=== PATIENT | male | born 1980 | race Caucasian/White ===

== ENCOUNTER 2016-12-31 15:48 | Emergency (ER) | payer SELFPAY ==
[~2016-12-31] VITALS: Ht 177.8 cm; Wt 81.8 kg
[2016-12-31 15:53] VITALS: TEMP 98.6
[2016-12-31] MEDS ORDERED: TYLENOL 500MG500 MG PO (16:00)
[2016-12-31 16:18] LABS: BASO # 0.1 (0.0-0.2); BASO % 1.1 % (0.0-2.0); EOS # 0.4 (0.0-0.7); EOS % 4.1 % (0-4.0); GRAN # 4.8 (1.4-6.5); GRAN % 45.6 % (42.2-75.2); HEMATOCRIT 47.3 % (42.0-52.0); HEMOGLOBIN 16.9 g/dl (13.5-18.0); LYMPH # 3.9 (1.2-3.4); LYMPH % 36.9 % (20.0-51.0); MEAN CELL VOLUME 92 fl (80.0-100.0); MEAN CORPUSCULAR HEMOGLOBIN 33 pg (27.0-31.0); MEAN CORPUSCULAR HGB CONC 36 g/dl (33.0-37.0); MEAN PLATELET VOLUME 10.1 fl (7.4-10.4); MONO # 1.3 (0.1-0.6); PLATELET COUNT 342 K/mm3 (130-400); RED BLOOD COUNT 5.14 M/mm3 (4.20-5.60); REDCELL DISTRIBUTION WIDTH-CV 11.9 % (11.5-14.5); WHITE BLOOD COUNT 10.5 K/mm3 (4.8-10.8)
[2016-12-31 16:32] LABS: ADJUSTED CALCIUM 8.5 mg/dL (8.4-10.2); ALBUMIN 4.9 gm/dL (3.5-5.0); BILIRUBIN,TOTAL 0.5 mg/dL (0.0-1.0); CALCIUM 9.2 mg/dL (8.4-10.2); CREATININE, serum 1.18 mg/dL (0.66-1.25); POTASSIUM 4.2 mmol/L (3.4-5.0); TOTAL PROTEIN 8.5 gm/dL (6.4-8.2)
[2016-12-31 18:19] VITALS: BP 136/87; PULSE 106
== END 2016-12-31 18:21 | disposition home or self-care (01) ==
LOC: COL.ER 15:48
PROVIDERS: Emergency Medicine
DX: S31.811A Laceration without foreign body of right buttock, initial encounter (principal); F10.129 Alcohol abuse with intoxication, unspecified; F17.210 Nicotine dependence, cigarettes, uncomplicated; Z23 Encounter for immunization; Y90.8 Blood alcohol level of 240 mg/100 ml or more; W01.110A Fall on same level from slipping, tripping and stumbling with subsequent striking against sharp glass, initial encounter; Y92.009 Unspecified place in unspecified non-institutional (private) residence as the place of occurrence of the external cause
CPT/HCPCS: J2270; J2405; J7030

== ENCOUNTER → 2017-01-10 | Outpatient (CLI) | payer BC ==
[~2017-01-10] MED LIST: TYLENOL 500MG500 MG PO
[2017-01-10 16:57] LABS: BASO # 0.1 (0.0-0.2); EOS # 0.3 (0.0-0.7); EOS % 3.7 % (0-4.0); GRAN # 4.3 (1.4-6.5); GRAN % 60.6 % (42.2-75.2); HEMATOCRIT 42.5 % (42.0-52.0); HEMOGLOBIN 14.9 g/dl (13.5-18.0); LYMPH # 1.8 (1.2-3.4); LYMPH % 24.9 % (20.0-51.0); MEAN CELL VOLUME 94 fl (80.0-100.0); MEAN CORPUSCULAR HEMOGLOBIN 33 pg (27.0-31.0); MEAN CORPUSCULAR HGB CONC 35 g/dl (33.0-37.0); MONO # 0.7 (0.1-0.6); MONO % 9.2 % (1.7-9.3); PLATELET COUNT 300 K/mm3 (130-400); RED BLOOD COUNT 4.51 M/mm3 (4.20-5.60); REDCELL DISTRIBUTION WIDTH-CV 12.3 % (11.5-14.5); WHITE BLOOD COUNT 7.1 K/mm3 (4.8-10.8)
== END ==
LOC: COL.LAB 15:44
PROVIDERS: Nurse Practitioner Family
DX: L03.317 Cellulitis of buttock (principal)

== ENCOUNTER 2019-10-13 20:39 | Emergency (ER) | payer BC ==
[2019-10-13] MEDS ORDERED: CEPHALEXIN500 M1 PO ×2 (22:37)
[2019-10-16] MEDS ORDERED: CEPHALEXIN500 M1 PO (09:33)
== END 2019-10-13 21:06 | disposition left against medical advice (07) ==
LOC: COL.ER 20:39
DX: Z72.9 Problem related to lifestyle, unspecified (principal)

== ENCOUNTER 2019-10-13 21:15 | Emergency (ER) | payer BC ==
[~2019-10-13] VITALS: Ht 177.8 cm; Wt 90.9 kg
[2019-10-13 21:23] VITALS: BP 165/104; TEMP 98.8
[2019-10-13] MEDS ORDERED: CEPHALEXIN500 M1 PO ×2 (22:37)
[2019-10-13 23:14] VITALS: PULSE 102
[2019-10-16] MEDS ORDERED: CEPHALEXIN500 M1 PO (09:33)
== END 2019-10-13 23:14 | disposition home or self-care (01) ==
LOC: COL.ER 21:15
DX: S51.812A Laceration without foreign body of left forearm, initial encounter (principal); F32.9 Major depressive disorder, single episode, unspecified; F43.10 Post-traumatic stress disorder, unspecified; Z72.89 Other problems related to lifestyle; W26.8XXA Contact with other sharp object(s), not elsewhere classified, initial encounter; Y92.009 Unspecified place in unspecified non-institutional (private) residence as the place of occurrence of the external cause

== ENCOUNTER → 2019-10-20 | Outpatient (CLI) | payer BC ==
[~2019-10-20] MED LIST changes: +CEPHALEXIN500 M1 PO
[2019-10-20 11:57] VITALS: BP 159/90; PULSE 105; TEMP 98.9
== END ==
LOC: COL.ER 11:50
DX: Z48.02 Encounter for removal of sutures (principal)

== ENCOUNTER 2021-10-28 17:30 | Emergency (ER) | payer BC ==
[~2021-10-28] VITALS: Ht 177.8 cm; Wt 82.7 kg
[2021-10-28 18:08] VITALS: TEMP 98.2
[2021-10-28] MEDS ORDERED: MOBIC15 MG PO (18:11)
[2021-10-28 18:59] LABS: BASO % 0.8 % (0.0-2.0); EOS # 0.1 K/mm3 (0.0-0.7); EOS % 1.8 % (0.0-4.0); GRAN # 2.9 K/mm3 (1.4-6.5); GRAN % 57.6 % (42.2-75.2); HEMATOCRIT 43.2 % (42.0-52.0); HEMOGLOBIN 14.4 g/dl (13.5-18.0); LYMPH # 1.5 K/mm3 (1.2-3.4); LYMPH % 29.6 % (20.0-51.0); MEAN CELL VOLUME 95 fl (80.0-100.0); MEAN CORPUSCULAR HEMOGLOBIN 32 pg (27-31); MEAN CORPUSCULAR HGB CONC 33 g/dl (33.0-37.0); MEAN PLATELET VOLUME 9.7 fl (7.4-10.4); MONO # 0.5 K/mm3 (0.1-0.6); MONO % 9.8 % (1.7-9.3); PLATELET COUNT 284 K/mm3 (130-400); RED BLOOD COUNT 4.53 M/mm3 (4.20-5.60); REDCELL DISTRIBUTION WIDTH-CV 13.1 % (11.5-14.5)
[2021-10-28 19:13] LABS: ACETAMINOPHEN < 1.0 ug/mL (10-30); ALANINE AMINOTRANSFERASE 40 U/L (0-55); ALBUMIN 3.9 gm/dL (3.5-5.0); ALKALINE PHOSPHATASE 69 U/L (40-150); ANION GAP 15 mmol/L (7-16); AST,SGOT 36 U/L (5-34); BILIRUBIN,TOTAL 0.3 mg/dL (0.2-1.2); BLOOD UREA NITROGEN 6 mg/dL (9-21); CARBON DIOXIDE 23 mmol/L (22-29); CHLORIDE 108 mmol/L (98-107); GLUCOSE 97 mg/dL (70-99); SALICYLATE < 5.0 mg/dL (15.0-30.0); SODIUM 146 mmol/L (136-145); TOTAL PROTEIN 7.2 gm/dL (6.2-8.1)
[2021-10-28 19:14] LABS: ALCOHOL(ethanol),MEDICAL 309 mg/dL (0-10)
[2021-10-28 19:46] LABS: COLLECTION METHOD CLEAN CATCH
[2021-10-28 19:55] LABS: PH 6 (5-8); SQUAMOUS EPITHELIAL None Seen /hpf (0-10); URINE APPEARANCE Clear (CLEAR/HAZY); URINE BACTERIA None Seen /hpf (NONE SEEN); URINE BLOOD Negative (NEGATIVE); URINE COLOR Straw (YELLOW); URINE GLUCOSE Negative (NEGATIVE); URINE KETONE Negative (NEGATIVE); URINE NITRATE Negative (NEGATIVE); URINE PROTEIN(semi-quant) Negative (NEGATIVE); URINE RBC 0-2 /hpf (0-2); URINE UROBILINOGEN Negative (NEGATIVE)
[2021-10-28 20:04] LABS: TRICYCLIC ANTIDEPRESS URINE NEGATIVE
[2021-10-29 06:49] VITALS: BP 127/81; PULSE 87
[2021-10-29 07:00] VITALS: BP 127/81; PULSE 87
[2021-10-29 07:15] VITALS: BP 127/81; PULSE 87
[2021-10-29 07:28] VITALS: BP 175/96; PULSE 88
[2021-10-29 07:54] VITALS: BP 159/96; PULSE 96
== END 2021-10-29 07:50 | disposition home or self-care (01) ==
LOC: COL.ER 17:30
PROVIDERS: Physician Assistant
DX: F32.9 Major depressive disorder, single episode, unspecified (principal); F10.129 Alcohol abuse with intoxication, unspecified; R45.851 Suicidal ideations; Y90.8 Blood alcohol level of 240 mg/100 ml or more
CPT/HCPCS: J7030

== ENCOUNTER 2023-04-23 14:56 | Emergency (ER) | payer SELFPAY ==
[~2023-04-23] VITALS: Ht 177.8 cm; Wt 90.9 kg
[~2023-04-23 14:56] MED LIST changes: +MOBIC15 MG PO
[2023-04-23 14:57] VITALS: TEMP 98.7
[2023-04-23] MEDS ORDERED: Pantoprazole 40 MG in NS 10 ML IV ONE (15:15)
[2023-04-23] MEDS ORDERED: Folic Acid 1 MG,Thiamine 200 MG in NS 1,000 ML IV ONE (15:15)
[2023-04-23] MEDS ORDERED: NS 1,000 ML IV ONE (15:15)
[2023-04-23 15:18] LABS: BASO # 0.1 K/mm3 (0.0-0.2); BASO % 0.9 % (0.0-2.0); EOS % 0.5 % (0.0-4.0); GRAN # 5.9 K/mm3 (1.4-6.5); GRAN % 74.2 % (42.2-75.2); HEMATOCRIT 44.3 % (42.0-52.0); HEMOGLOBIN 15.8 g/dl (13.5-18.0); MEAN CELL VOLUME 97 fl (80.0-100.0); MEAN CORPUSCULAR HEMOGLOBIN 35 pg (27-31); MEAN CORPUSCULAR HGB CONC 36 g/dl (33.0-37.0); MEAN PLATELET VOLUME 9.9 fl (7.4-10.4); MONO % 12.1 % (1.7-9.3); PLATELET COUNT 215 K/mm3 (130-400); RED BLOOD COUNT 4.55 M/mm3 (4.20-5.60); REDCELL DISTRIBUTION WIDTH-CV 12.4 % (11.5-14.5)
[2023-04-23] MEDS ORDERED: LORazepam 2 MG/ML 1 ML VIAL IV ONE (15:30)
[2023-04-23 15:32] LABS: ALANINE AMINOTRANSFERASE 71 U/L (0-55); ALBUMIN 4.5 gm/dL (3.5-5.0); ALKALINE PHOSPHATASE 80 U/L (40-150); ANION GAP 22 mmol/L (7-16); AST,SGOT 64 U/L (5-34); BLOOD UREA NITROGEN 5 mg/dL (9-21); CALCIUM 9.8 mg/dL (8.4-10.2); CARBON DIOXIDE 19 mmol/L (22-29); CHLORIDE 96 mmol/L (98-107); CREATININE, serum 1.05 mg/dL (0.72-1.25); GLUCOSE 130 mg/dL (70-99); LIPASE 94 U/L (8-78); POTASSIUM 4.1 mmol/L (3.5-4.5); SODIUM 137 mmol/L (136-145); TOTAL PROTEIN 7.9 gm/dL (6.2-8.1)
[2023-04-23 15:34] LABS: ALCOHOL(ethanol),MEDICAL < 10 mg/dL (0-10)
[2023-04-23 16:18] LABS: COLLECTION METHOD CLEAN CATCH
[2023-04-23 16:43] LABS: PH 7.5 (5.0-8.5); URINE APPEARANCE Clear (CLEAR/HAZY); URINE BLOOD 1+ (NEGATIVE); URINE COLOR Yellow (YELLOW); URINE GLUCOSE Negative (NEGATIVE); URINE KETONE Negative (NEGATIVE); URINE NITRATE Negative (NEGATIVE); URINE PROTEIN(semi-quant) 2+ (NEGATIVE)
[2023-04-23 16:44] LABS: MUCOUS Present (NOT PRESENT); SQUAMOUS EPITHELIAL 0-2 /hpf (0-10); URINE BACTERIA Occasional /hpf (NONE SEEN)
[2023-04-23 16:45] LABS: TRICYCLIC ANTIDEPRESS URINE NEGATIVE (NEGATIVE)
[2023-04-23 17:35] VITALS: BP 158/94; PULSE 114
== END 2023-04-23 17:35 | disposition home or self-care (01) ==
LOC: COL.ER 14:56
PROVIDERS: Physician Assistant
DX: F10.939 Alcohol use, unspecified with withdrawal, unspecified (principal); R74.01 Elevation of levels of liver transaminase levels; F17.210 Nicotine dependence, cigarettes, uncomplicated; Y90.0 Blood alcohol level of less than 20 mg/100 ml
CPT/HCPCS: C9113; J2060; J3411; J7030